=== PATIENT | female | born 1940 | race Caucasian/White ===

== ENCOUNTER 2019-07-04 16:15 | Observation (INO) | payer MEDICARE, OTHER ==
[~2019-07-04 16:15] MED LIST: LORazepam 2 MG/ML Syringe ONE
[2019-07-04] MEDS ORDERED: LORazepam 2 MG/ML Syringe IVPUSH ONE (16:21)
--- NOTE | 2019-07-04 16:36 | EDM.PDOC ---
ED HPI GENERAL MEDICAL PROBLEM - General Chief Complaint: General Stated Complaint: nausea/vomiting/dizzy Time Seen by Provider: 07/04/19 16:19 Source of Information: Reports: Patient, EMS, Family History Limitations: Reports: No Limitations - History of Present Illness INITIAL COMMENTS - FREE TEXT/NARRATIVE: Patient to the emergency department by EMS where she complained of sudden onset of severe dizziness with nausea and vomiting. The patient advises that she felt as if the room was spinning. The patient denies having symptoms such as this in the past. The patient denies any ear, nose, throat symptoms. She denies any unusual neck, back pain or stiffness she denies any chest pain pressure heaviness no palpitations or irregular heartbeat she denies any shortness of breath she denies any abdominal pain she has had nausea vomiting she denies any diarrhea she denies any rash she denies any unusual joint pain. Denies any fever chills Onset: Sudden Duration: Minutes: (Symptoms just prior to arrival) Location: Denies: Head, Neck, Chest, Abdomen, Back Quality: Denies: Ache Severity: Severe Improves with: Reports: None Worsens with: Reports: Movement Associated Symptoms: Reports: Nausea/Vomiting. Denies: Fever/Chills, Headaches Treatments RESIDENT ASSISTANT: Reports: Other (see below) (none) - Related Data Allergies Allergy/AdvReac Type Severity Reaction Status Date / Time brimonidine [From Alphagan P] Allergy Blisters Verified 07/04/19 16:29 Home Meds: Home Meds Alendronate Sodium [Fosamax] 70 mg PO WEEKLY 07/04/19 [History] Aspirin [Halfprin] 80 mg PO DAILY 07/04/19 [History] Calcium Carbonate [Calcium] 2 tab PO DAILY 07/04/19 [History] Cholecalciferol (Vitamin D3) [Vitamin D3] 5,000 units PO DAILY 07/04/19 [History ] Cyanocobalamin (Vitamin B12) [Vitamin B12] 1 tab PO Q48H 07/04/19 [History] Folic Acid 400 mcg PO DAILY 07/04/19 [History] Iron 65 mg PO BID 07/04/19 [History] Latanoprost 1 drop EYEBOTH BEDTIME 07/04/19 [History] Magnesium Oxide [Magnesium] 500 mg PO DAILY 07/04/19 [History] Meloxicam 7.5 mg PO DAILY 07/04/19 [History] Multivitamin [Multivitamins] 1 cap PO DAILY 07/04/19 [History] Norethindrone AC-Eth Estradiol [Jinteli 1 MG-5 MCG] 0.5 tab PO ACBREAKFAST 07/04 [History] Potassium Gluconate [Potassium] 99 mg PO DAILY 07/04/19 [History] Simvastatin 10 mg PO DAILY 07/04/19 [History] Past Medical History - Past Surgical History Neurological Surgical History: Reports: Laminectomy, Lumbar Spine, Spinal Fusion ED ROS GENERAL - Review of Systems Review Of Systems: See Below Constitutional: Reports: No Symptoms. Denies: Fever, Chills, Weakness HEENT: Reports: No Symptoms. Denies: Ear Pain, Eye Pain, Nose Pain, Throat Pain Respiratory: Reports: No Symptoms. Denies: Shortness of Breath Cardiovascular: Reports: No Symptoms. Denies: Chest Pain, Lightheadedness, Palpitations, Syncope Endocrine: Reports: No Symptoms GI/Abdominal: Reports: Nausea, Vomiting. Denies: Abdominal Pain : Reports: No Symptoms Musculoskeletal: Reports: No Symptoms. Denies: Neck Pain, Back Pain, Muscle Pain Skin: Reports: No Symptoms Neurological: Reports: Dizziness. Denies: Headache, Numbness, Tingling, Trouble Speaking, Weakness, Change in Speech Psychiatric: Reports: No Symptoms ED EXAM, GENERAL - Physical Exam Exam: See Below Exam Limited By: No Limitations General Appearance: Alert, WD/WN, Moderate Distress, Thin Eye Exam: Bilateral Eye: EOMI, Nystagmus, PERRL Ear Exam: Bilateral Ear: Auricle Normal, Canal Normal, TM normal Nose: Normal Inspection, Normal Mucosa Throat/Mouth: Normal Inspection, Normal Lips, Normal Oropharynx, Normal Voice, No Airway Compromise Head: Atraumatic, Normocephalic Neck: Normal Inspection, Supple, Non-Tender, Full Range of Motion Respiratory/Chest: No Respiratory Distress, Lungs Clear, Normal Breath Sounds, Chest Non-Tender Cardiovascular: Normal Peripheral Pulses, Regular Rate, Rhythm, No Murmur Peripheral Pulses: 2+: Radial (L), Radial (R) GI/Abdominal: Soft, Non-Tender Back Exam: Normal Inspection, Full Range of Motion Extremities: Normal Inspection, Normal Range of Motion, Non-Tender, Normal Capillary Refill Neurological: Alert, Oriented, CN II-XII Intact, Normal Cognition, Normal Gait, No Motor/Sensory Deficits Psychiatric: Normal Affect, Normal Mood Skin Exam: Warm, Dry, Normal Color, No Rash EKG INTERPRETATION EKG Date: 07/04/19 Time: 16:24 Rhythm: NSR [place]: Normal P-Wave: Present QRS: Normal ST-T: Normal QT: Normal EKG Interpretation Comments: Twelve-lead EKG shows an underlying sinus rhythm with a ventricular rate of 94 there is no axis deviation there is normal R wave progression there is no acute injury or ischemic pattern noted Course - Vital Signs Text/Narrative:: 1635 the patient was evaluated in the emergency department, patient's cranial nerves II through XII are intact. EOMI, normal [id number], no palmar drift. The patient advises that she felt like the room was spinning. The patient is vomiting upon arrival to the emergency department. The patient was given Zofran 4 mg IV in the ambulance. I suspect this is a benign positional vertigo, the patient was given Ativan 2 mg IV push. Currently the patient has no further vomiting she is sleepy however she advises that she is feeling much better. All the appropriate labs have been drawn from the patient and are pending as well as a CT the brain is pending to rule out any acute pathology. Disposition will be made once all the data is been collected and reviewed. 1703 the patient continues to improve she is resting quietly, CT of the brain was performed and does not show any obvious acute pathology however the radiology reading is still pending. The patient CBC and general chemistries as well as troponin and magnesium are all essentially normal. Once the CT of the brain has been read by the radiologist disposition will be made 1722 the radiologist called back and advised that the CT of the brain does not show any acute pathology. See the radiology reading for details. Again, the patient is continuing to improve she is sleeping. The patient will be observed in observation overnight, she will be placed on Antivert 25 mg 3 times daily and the plan will be for discharge tomorrow if she is feeling okay and she will have a audiology follow-up appointment. The suspected diagnosis would be benign positional vertigo Last Recorded V/S: Last Vital Signs Temp 36.8 C 07/04/19 16:53 Pulse 92 07/04/19 16:53 Resp 18 07/04/19 16:53 BP 162/81 H 07/04/19 16:53 Pulse Ox 99 07/04/19 16:53 - Orders/Labs/Meds Orders: Active Orders 24 hr Category Date Time Status Head wo Cont [CT] Stat Exams 07/04/19 16:30 Taken UA RFX ALICJA AND CULT IF INDIC [URIN] Stat Lab 07/04/19 16:29 Ordered Labs: Laboratory Tests 07/04/19 07/04/19 Range/Units 16:35 16:35 WBC 5.1 (5.0-10.0) 10^3/uL RBC 3.57 L (4.00-5.50) 10^6/uL Hgb 11.6 L (12.0-16.0) g/dL Hct 35.2 L (37.0-47.0) % MCV 98.6 H (82.0-94.0) fL MCH 32.5 H (27.0-32.0) pg MCHC 33.0 (33.0-38.0) g/dL RDW Coeff of Blayne 15.2 H (11.0-15.0) % Plt Count 147 L (150-400) 10^3/uL Neut % (Auto) 66.4 (35-85) % Lymph % (Auto) 16.2 (10-55) % [place] % (Auto) 9.1 (0-16) % Eos % (Auto) 7.5 H (0-5) % Baso % (Auto) 0.8 (0-3) % Neut # (Auto) 3.35 (1.80-7.00) 10^3/uL Lymph # (Auto) 0.82 L (1.00-4.80) 10^3/uL [place] # (Auto) 0.46 (0.00-0.80) 10^3/uL Eos # (Auto) 0.38 (0.00-0.45) 10^3/uL Baso # (Auto) 0.04 10^3/uL Sodium 141 (136-145) mEq/L Potassium 3.2 L (3.5-5.0) mEq/L Chloride 103 (98-106) mEq/L Carbon Dioxide 25 (21-32) mmol/L BUN 17 (7-18) mg/dL Creatinine 0.8 (0.6-1.0) mg/dL Est Cr Clr Drug Dosing 44.44 mL/min Estimated GFR (MDRD) > 60 (>=60) mL/min Glucose 120 H D (75-99) mg/dL Calcium 8.6 (8.4-10.1) mg/dL Magnesium 1.9 (1.8-2.4) mg/dL Total Bilirubin 0.5 (0.0-1.0) mg/dL AST 20 (15-37) U/L ALT 23 (12-78) U/L Alkaline Phosphatase 44 L (46-116) U/L Troponin I < 0.017 (0.00-0.06) ng/mL Total Protein 6.6 (6.4-8.2) g/dL Albumin 3.2 L (3.4-5.0) g/dL Meds: Medications Discontinued Medications Generic Name Dose Route Start Last Admin Trade Name Freq PRN Reason Stop Dose Admin Lorazepam Confirm 07/04/19 16:06 07/04/19 16:31 Ativan Administered 07/04/19 16:07 Not Given Dose 2 mg .ROUTE .STK-MED ONE Lorazepam 2 mg 07/04/19 16:21 07/04/19 16:21 Ativan IVPUSH 07/04/19 16:22 2 mg ONETIME ONE Administration Departure - Departure Time of Disposition: 17:23 Disposition: Refer to Observation Clinical Impression: Benign positional vertigo - Discharge Information *PRESCRIPTION DRUG MONITORING PROGRAM REVIEWED*: Not Applicable *COPY OF PRESCRIPTION DRUG MONITORING REPORT IN PATIENT HUMPHREY: Not Applicable Forms: ED Department Discharge Sepsis Event Note - Evaluation Sepsis Screening Result: No Definite Risk - Focused Exam Vital Signs: Vital Signs Temp Pulse Resp BP Pulse Ox 07/04/19 16:53 36.8 C 92 18 162/81 H 99 07/04/19 16:22 96 07/04/19 16:19 36.6 C 95 20 188/83 H 90 L Date Exam was Performed: 07/04/19 Time Exam was Performed: 17:21 - Problem List & Annotations (1) Benign positional vertigo SNOMED Code(s): 687203497 Code(s): H81.10 - BENIGN PAROXYSMAL VERTIGO, UNSPECIFIED EAR Status: Acute Priority: High Current Visit: Yes Qualifiers: Laterality: unspecified laterality Qualified Code(s): H81.10 - Benign paroxysmal vertigo, unspecified ear - Problem List Review Problem List Initiated/Reviewed/Updated: Yes - My Orders Last 24 Hours: My Active Orders 07/04/19 16:29 UA RFX ALICJA AND CULT IF INDIC [URIN] Stat 07/04/19 16:30 Head wo Cont [CT] Stat - Assessment/Plan Admission H&P: Please use this note as an admission H&P Last 24 Hours: My Active Orders 07/04/19 16:29 UA RFX ALICJA AND CULT IF INDIC [URIN] Stat 07/04/19 16:30 Head wo Cont [CT] Stat Plan: As above
[2019-07-04 16:56] LABS: CHLORIDE,CL 103 mEq/L (98-106); SODIUM,NA 141 mEq/L (136-145)
[2019-07-04] MEDS ORDERED: Ondansetron 4 MG/2 ML SDV IV PRN (17:27)
[2019-07-04] MEDS ORDERED: Sodium Chloride 0.9% 10 ML Syringe FLUSH PRN (17:27)
[2019-07-04] MEDS ORDERED: CYANOCOBALAMIN PO SCH ×2 (17:30→20:00)
[2019-07-04] MEDS ORDERED: Enoxaparin 40 MG/0.4 ML Syringe SUBCUT SCH (17:30)
[2019-07-04] MEDS ORDERED: Morphine 2 MG/ML Syringe IVPUSH ONE (19:12)
[2019-07-04] MEDS: Meclizine 12.5 MG Tab PO SCH (19:43)
[2019-07-04] MEDS: Enoxaparin 40 MG/0.4 ML Syringe SUBCUT SCH (19:44)
[2019-07-04] MEDS: Sodium Chloride 0.9% 1,000 ML IV SCH (19:46)
[2019-07-04] MEDS: IRON 65 MG PO SCH (21:03)
[2019-07-04] MEDS: LATANOPROST EYEBOTH SCH (21:06)
[2019-07-05] MEDS: Sodium Chloride 0.9% 1,000 ML IV SCH ×2 (03:34→13:46)
[2019-07-05] MEDS ORDERED: ETHINYL ESTRADIOL PO SCH (07:00)
[2019-07-05] MEDS ORDERED: NORETHINDRONE PO SCH (07:00)
[2019-07-05] MEDS ORDERED: [UNRECOGNIZED DRUG - OTHER] PO SCH (07:00)
[2019-07-05] MEDS ORDERED: Non-Formulary Medication 1 Each (Aspirin [Halfprin] 81 MG) PO SCH (08:00)
[2019-07-05] MEDS ORDERED: MELOXICAM 7.5 MG PO SCH (08:00)
[2019-07-05] MEDS ORDERED: CHOLECALCIFEROL 5000 UNIT PO SCH (08:00)
[2019-07-05] MEDS ORDERED: Non-Formulary Medication 1 Each (Simvastatin [Simvastatin] 10 MG) PO SCH (08:00)
[2019-07-05] MEDS ORDERED: Non-Formulary Medication 1 Each (Potassium Gluconate [Potassium] 99 MG) PO SCH (08:00)
[2019-07-05 09:22] LABS: CHLORIDE,CL 107 mEq/L (98-106); SODIUM,NA 143 mEq/L (136-145)
[2019-07-05] MEDS ORDERED: CYANOCOBALAMIN PO SCH (09:45)
[2019-07-05] MEDS: NORETHINDRONE AC ETH ESTRADIOL PO SCH (11:17)
[2019-07-05] MEDS: POTASSIUM GLUCONATE 99 MG PO SCH (11:18)
[2019-07-05] MEDS: CHOLECALCIFEROL 5000 UNIT PO SCH (11:19)
[2019-07-05] MEDS: FERROUS SULFATE 325 MG PO SCH ×2 (11:19→20:09)
[2019-07-05] MEDS: SIMVASTATIN 10 MG PO SCH (11:19)
[2019-07-05] MEDS: MELOXICAM 7.5 MG PO SCH (11:19)
[2019-07-05] MEDS: FOLIC ACID 400 MCG PO SCH (11:20)
[2019-07-05] MEDS: Non-Formulary Medication 1 Each (Multivitamin [Multivitamins] 1 CAP) PO SCH (11:20)
[2019-07-05] MEDS: Non-Formulary Medication 1 Each (Magnesium Oxide [Magnesium] 500 MG) PO SCH (11:20)
[2019-07-05] MEDS: CALCIUM CARBONATE PO SCH (11:20)
[2019-07-05] MEDS: Aspirin 81 MG Tab.EC**OWN MED PO SCH (11:21)
[2019-07-05] MEDS: Meclizine 12.5 MG Tab PO SCH ×3 (11:26→21:16)
[2019-07-05] MEDS: IRON 65 MG PO SCH (12:36)
--- NOTE | 2019-07-05 15:00 | PCM.PN ---
- General Info Date of Service: 07/05/19 Admission Dx/Problem (Free Text): vertigo Functional Status: Reports: Pain Controlled, Tolerating Diet, Ambulating - Review of Systems General: Reports: Weakness, Fatigue, Malaise HEENT: Denies: Visual Changes Pulmonary: Denies: Shortness of Breath, Cough Cardiovascular: Denies: Chest Pain, Edema, Lightheadedness Gastrointestinal: Reports: Nausea (admits that nausea has much improved, just mild now). Denies: Abdominal Pain, Vomiting Genitourinary: Reports: No Symptoms Musculoskeletal: Reports: No Symptoms Skin: Reports: No Symptoms Neurological: Reports: Dizziness, Weakness. Denies: Headache - Patient Data Vitals - Most Recent: Last Vital Signs Temp 98.2 F 07/05/19 12:00 Pulse 84 07/05/19 12:00 Resp 18 07/05/19 12:00 BP 140/67 07/05/19 12:00 Pulse Ox 97 07/05/19 12:00 Weight - Most Recent: 136 lb I&O - Last 24 Hours: Intake & Output 07/04/19 07/05/19 07/05/19 22:59 06:59 14:59 Intake Total 980 1000 Output Total 1400 Balance -420 1000 Lab Results Last 24 Hours: Laboratory Results - last 24 hr 07/04/19 07/04/19 07/04/19 Range/Units 16:35 16:35 20:00 WBC 5.1 (5.0-10.0) 10^3/uL RBC 3.57 L (4.00-5.50) 10^6/uL Hgb 11.6 L (12.0-16.0) g/dL Hct 35.2 L (37.0-47.0) % MCV 98.6 H (82.0-94.0) fL MCH 32.5 H (27.0-32.0) pg MCHC 33.0 (33.0-38.0) g/dL RDW Coeff of Blayne 15.2 H (11.0-15.0) % Plt Count 147 L (150-400) 10^3/uL Neut % (Auto) 66.4 (35-85) % Lymph % (Auto) 16.2 (10-55) % [place] % (Auto) 9.1 (0-16) % Eos % (Auto) 7.5 H (0-5) % Baso % (Auto) 0.8 (0-3) % Neut # (Auto) 3.35 (1.80-7.00) 10^3/uL Lymph # (Auto) 0.82 L (1.00-4.80) 10^3/uL [place] # (Auto) 0.46 (0.00-0.80) 10^3/uL Eos # (Auto) 0.38 (0.00-0.45) 10^3/uL Baso # (Auto) 0.04 10^3/uL Sodium 141 (136-145) mEq/L Potassium 3.2 L (3.5-5.0) mEq/L Chloride 103 (98-106) mEq/L Carbon Dioxide 25 (21-32) mmol/L BUN 17 (7-18) mg/dL Creatinine 0.8 (0.6-1.0) mg/dL Est Cr Clr Drug Dosing 44.44 mL/min Estimated GFR (MDRD) > 60 (>=60) mL/min Glucose 120 H D (75-99) mg/dL Calcium 8.6 (8.4-10.1) mg/dL Magnesium 1.9 (1.8-2.4) mg/dL Total Bilirubin 0.5 (0.0-1.0) mg/dL AST 20 (15-37) U/L ALT 23 (12-78) U/L Alkaline Phosphatase 44 L (46-116) U/L Troponin I < 0.017 (0.00-0.06) ng/mL C-Reactive Protein (0.2-0.8) mg/dL Total Protein 6.6 (6.4-8.2) g/dL Albumin 3.2 L (3.4-5.0) g/dL Urine Color Yellow (YELLOW) Urine Appearance Clear (CLEAR) Urine pH 7.0 (4.5-8.0) Ur Specific [place] 1.020 (1.003-1.020) Urine Protein Trace H (NEGATIVE) mg/dL Urine Glucose (UA) Negative (NEGATIVE) mg/dL Urine Ketones 15 H (NEGATIVE) mg/dL Urine Occult Blood Negative (NEGATIVE) Urine Nitrite Negative (NEGATIVE) Urine Bilirubin Negative (NEGATIVE) Urine Urobilinogen 0.2 (0.2-1.0) EU/dL Ur Leukocyte Esterase Negative (NEGATIVE) Urine RBC 0-5 (0-5) /HPF Urine WBC 0-5 (0-5) /HPF Ur Epithelial Cells Moderate H (NOT SEEN) /HPF Urine Bacteria Few H (NOT SEEN) /HPF 07/05/19 07/05/19 Range/Units 09:06 09:06 WBC 4.7 L (5.0-10.0) 10^3/uL RBC 3.67 L (4.00-5.50) 10^6/uL Hgb 11.9 L (12.0-16.0) g/dL Hct 35.9 L (37.0-47.0) % MCV 97.8 H (82.0-94.0) fL MCH 32.4 H (27.0-32.0) pg MCHC 33.1 (33.0-38.0) g/dL RDW Coeff of Blayne 15.1 H (11.0-15.0) % Plt Count 157 (150-400) 10^3/uL Neut % (Auto) 71.1 (35-85) % Lymph % (Auto) 14.8 (10-55) % [place] % (Auto) 8.0 (0-16) % Eos % (Auto) 5.7 H (0-5) % Baso % (Auto) 0.4 (0-3) % Neut # (Auto) 3.36 (1.80-7.00) 10^3/uL Lymph # (Auto) 0.70 L (1.00-4.80) 10^3/uL [place] # (Auto) 0.38 (0.00-0.80) 10^3/uL Eos # (Auto) 0.27 (0.00-0.45) 10^3/uL Baso # (Auto) 0.02 10^3/uL Sodium 143 (136-145) mEq/L Potassium 3.6 (3.5-5.0) mEq/L Chloride 107 H (98-106) mEq/L Carbon Dioxide 26 (21-32) mmol/L BUN 10 (7-18) mg/dL Creatinine 0.7 (0.6-1.0) mg/dL Est Cr Clr Drug Dosing 50.79 mL/min Estimated GFR (MDRD) > 60 (>=60) mL/min Glucose 144 H (75-99) mg/dL Calcium 8.3 L (8.4-10.1) mg/dL Magnesium (1.8-2.4) mg/dL Total Bilirubin (0.0-1.0) mg/dL AST (15-37) U/L ALT (12-78) U/L Alkaline Phosphatase (46-116) U/L Troponin I (0.00-0.06) ng/mL C-Reactive Protein 4.4 H (0.2-0.8) mg/dL Total Protein (6.4-8.2) g/dL Albumin (3.4-5.0) g/dL Urine Color (YELLOW) Urine Appearance (CLEAR) Urine pH (4.5-8.0) Ur Specific [place] (1.003-1.020) Urine Protein (NEGATIVE) mg/dL Urine Glucose (UA) (NEGATIVE) mg/dL Urine Ketones (NEGATIVE) mg/dL Urine Occult Blood (NEGATIVE) Urine Nitrite (NEGATIVE) Urine Bilirubin (NEGATIVE) Urine Urobilinogen (0.2-1.0) EU/dL Ur Leukocyte Esterase (NEGATIVE) Urine RBC (0-5) /HPF Urine WBC (0-5) /HPF Ur Epithelial Cells (NOT SEEN) /HPF Urine Bacteria (NOT SEEN) /HPF Med Orders - Current: Current Medications Aspirin (Halfprin) 81 mg PO DAILY [facility] Last Admin: 07/05/19 11:21 Dose: 81 mg Enoxaparin Sodium (Lovenox) 40 mg SUBCUT BEDTIME@2000 [facility] Last Admin: 07/04/19 19:44 Dose: 40 mg Sodium Chloride (Normal Saline) 1,000 mls @ 100 mls/hr IV ASDIRECTED [facility] Last Admin: 07/05/19 13:46 Dose: 100 mls/hr Meclizine HCl (Antivert) 25 mg PO TID [facility] Last Admin: 07/05/19 11:26 Dose: 25 mg Alendronate Sodium [ Fosamax] 70 Mg # Patient's Own Med# 70 mg PO Q7D [facility] Non-Formulary Medication (Calcium Carbonate [Calcium]) 2 tab PO DAILY [facility] Last Admin: 07/05/19 11:20 Dose: 2 tab Non-Formulary Medication (Folic Acid [Folic Acid]) 400 mcg PO DAILY [facility] Last Admin: 07/05/19 11:20 Dose: 400 mcg Non-Formulary Medication (Latanoprost [Latanoprost]) 1 drop EYEBOTH BEDTIME [facility] Last Admin: 07/04/19 21:06 Dose: 1 drop Non-Formulary Medication (Magnesium Oxide [Magnesium]) 500 mg PO DAILY [facility] Last Admin: 07/05/19 11:20 Dose: 500 mg Non-Formulary Medication (Multivitamin [Multivitamins]) 1 cap PO DAILY [facility] Last Admin: 07/05/19 11:20 Dose: 1 cap Cholecalciferol 5, (000 UnitsOwn Med) 5,000 units PO DAILY [facility] Last Admin: 07/05/19 11:19 Dose: 5,000 units Ferrous Sulfate 325 (MgOwn Med) 325 mg PO BID [facility] Last Admin: 07/05/19 11:19 Dose: 325 mg Cyanocobalamin ( Vitamin B12)Own Med 1 tab PO Q48H [facility] Last Admin: 07/05/19 11:18 Dose: 1 tab Meloxicam 7.5 Mg (Own Med) 7.5 mg PO DAILY [facility] Last Admin: 07/05/19 11:19 Dose: 7.5 mg Simvastatin 10 Mg (Own Med) 10 mg PO DAILY [facility] Last Admin: 07/05/19 11:19 Dose: 10 mg Potassium Gluconate (99 MgOwn Med) 99 mg PO DAILY [facility] Last Admin: 07/05/19 11:18 Dose: 99 mg Norethindrone Ac-Eth Estradiol [Jinteli 1 Mg-5 Mcg]Own Med 0.5 tab PO ACBREAKFAST [facility] Last Admin: 07/05/19 11:17 Dose: 0.5 tab Ondansetron HCl (Zofran) 4 mg IV Q4H PRN PRN Reason: Nausea/Vomiting Last Admin: 07/04/19 21:07 Dose: 4 mg Sodium Chloride (Saline Flush) 10 ml FLUSH ASDIRECTED PRN PRN Reason: Keep Vein Open Discontinued Medications Enoxaparin Sodium (Lovenox) 40 mg SUBCUT Q24H [facility] Last Admin: 07/04/19 18:48 Dose: Not Given Lorazepam (Ativan) Confirm Administered Dose 2 mg .ROUTE .STK-MED ONE Stop: 07/04/19 16:07 Last Admin: 07/04/19 16:31 Dose: Not Given Lorazepam (Ativan) 2 mg IVPUSH ONETIME ONE Stop: 07/04/19 16:22 Last Admin: 07/04/19 16:21 Dose: 2 mg Morphine Sulfate (Morphine) 2 mg IVPUSH ONETIME ONE Stop: 07/04/19 19:13 Last Admin: 07/04/19 19:45 Dose: Not Given Non-Formulary Medication 1 Each ( Aspirin [Halfprin] 81 Mg) 81 mg PO DAILY [facility] Last Admin: 07/05/19 12:36 Dose: Not Given Non-Formulary Medication (Cholecalciferol (Vitamin D3)) 5,000 units PO DAILY [facility] Last Admin: 07/05/19 12:36 Dose: Not Given Non-Formulary Medication (Cyanocobalamin (Vitamin B12) [Vitamin B12]) 1 tab PO Q48H [facility] Last Admin: 07/04/19 18:48 Dose: Not Given Non-Formulary Medication (Iron [Iron]) 65 mg PO BID [facility] Last Admin: 07/05/19 12:36 Dose: Not Given Non-Formulary Medication (Meloxicam [Meloxicam]) 7.5 mg PO DAILY [facility] Last Admin: 07/05/19 12:35 Dose: Not Given Non-Formulary Medication (Norethindrone Ac-Eth Estradiol [Jinteli 1 Mg-5 Mcg]) 0.5 tab PO ACBREAKFAST [facility] Last Admin: 07/05/19 12:36 Dose: Not Given Non-Formulary Medication (Potassium Gluconate [Potassium]) 99 mg PO DAILY [facility] Last Admin: 07/05/19 12:35 Dose: Not Given Non-Formulary Medication (Simvastatin [Simvastatin]) 10 mg PO DAILY [facility] Last Admin: 07/05/19 12:34 Dose: Not Given Non-Formulary Medication (Cyanocobalamin (Vitamin B12) [Vitamin B12]) 1 tab PO Q48H [facility] Last Admin: 07/04/19 21:03 Dose: Not Given - Exam General: Alert, Oriented, No Acute Distress HEENT: Mucous Membr. Moist/[place] Neck: Supple Lungs: Clear to Auscultation, Normal Respiratory Effort Cardiovascular: Regular Rate, Regular Rhythm GI/Abdominal Exam: Normal Bowel Sounds, Soft, Non-Tender Extremities: Normal Inspection, No Pedal Edema Skin: Warm, Dry Neurological: No New Focal Deficit Sepsis Event Note - Evaluation Sepsis Screening Result: No Definite Risk - Focused Exam Vital Signs: Vital Signs Temp Pulse Resp BP Pulse Ox 07/05/19 12:00 98.2 F 84 18 140/67 97 07/05/19 08:00 97.8 F 84 18 136/78 99 07/05/19 04:00 98.5 F 84 20 143/71 H 96 Date Exam was Performed: 07/05/19 Time Exam was Performed: 14:56 - Problem List & Annotations (1) Benign positional vertigo SNOMED Code(s): 588075755 Code(s): H81.10 - BENIGN PAROXYSMAL VERTIGO, UNSPECIFIED EAR Status: Acute Priority: High Current Visit: Yes Qualifiers: Laterality: unspecified laterality Qualified Code(s): H81.10 - Benign paroxysmal vertigo, unspecified ear - Problem List Review Problem List Initiated/Reviewed/Updated: Yes - My Orders Last 24 Hours: My Active Orders 07/05/19 08:41 Consult to Physical Therapy [PT Evaluation and Treatment] [CONS] Routine - Assessment Assessment:: BPV - Plan Plan:: Patient admits to feeling 60% better today. Does still feel dizzy when up but much improved. Able to move around in the bed, move head from side to side without nausea or vomiting. Did tolerate breakfast this am. CT scan of head was negative. Potassium low yesterday at 3.2. Telemetry has been normal with sinus rhythm. Blood pressure stable. Will arrange for canalith repositioning. continue Meclizine. Repeat labs today. Possible discharge home tomorrow.
[2019-07-05] MEDS: Enoxaparin 40 MG/0.4 ML Syringe SUBCUT SCH (20:08)
[2019-07-05] MEDS: LATANOPROST EYEBOTH SCH (20:10)
[2019-07-06] MEDS: Sodium Chloride 0.9% 1,000 ML IV SCH (01:11)
[2019-07-06] MEDS: NORETHINDRONE AC ETH ESTRADIOL PO SCH (06:13)
[2019-07-06] MEDS: Meclizine 12.5 MG Tab PO SCH (07:29)
[2019-07-06] MEDS: CHOLECALCIFEROL 5000 UNIT PO SCH (07:32)
[2019-07-06] MEDS: FOLIC ACID 400 MCG PO SCH (07:33)
[2019-07-06] MEDS: Non-Formulary Medication 1 Each (Magnesium Oxide [Magnesium] 500 MG) PO SCH (07:34)
[2019-07-06] MEDS: CALCIUM CARBONATE PO SCH (07:34)
[2019-07-06] MEDS: Aspirin 81 MG Tab.EC**OWN MED PO SCH (07:34)
[2019-07-06] MEDS: FERROUS SULFATE 325 MG PO SCH (07:34)
[2019-07-06] MEDS: POTASSIUM GLUCONATE 99 MG PO SCH (07:35)
[2019-07-06] MEDS: Non-Formulary Medication 1 Each (Multivitamin [Multivitamins] 1 CAP) PO SCH (07:35)
[2019-07-06] MEDS: MELOXICAM 7.5 MG PO SCH (07:35)
[2019-07-06] MEDS: SIMVASTATIN 10 MG PO SCH (07:36)
--- NOTE | 2019-07-06 09:16 | PCM.DCSUM1 ---
Discharge Summary - Hospital Course Free Text/Narrative:: in with dizziness, see notes for details Diagnosis: Stroke: No Modified [place] Scale: No Symptoms at All Modified [place] Scale Score: 0 - Discharge Data Discharge Date: 07/06/19 Discharge Disposition: Home, Self-Care 01 Condition: Fair - Referral to Home Health Primary Care Physician: Dante Alfaro MD - Discharge Diagnosis/Problem(s) (1) Benign positional vertigo SNOMED Code(s): 720076455 ICD Code: H81.10 - BENIGN PAROXYSMAL VERTIGO, UNSPECIFIED EAR Status: Acute Priority: High Current Visit: Yes Qualifiers: Laterality: unspecified laterality Qualified Code(s): H81.10 - Benign paroxysmal vertigo, unspecified ear - Patient Summary/Data Consults: Consultations 07/05/19 08:41 Consult to Physical Therapy [PT Evaluation and Treatment] [CONS] Routine - Patient Instructions Diet: Heart Healthy Diet Activity: As Tolerated Driving: Do Not Drive Showering/Bathing: May Shower - Discharge Plan *PRESCRIPTION DRUG MONITORING PROGRAM REVIEWED*: Not Applicable *COPY OF PRESCRIPTION DRUG MONITORING REPORT IN PATIENT [place]MPH[place]: Not Applicable Prescriptions/Med Rec: Meclizine [Antivert] 25 mg PO TID PRN 10 Days #30 tablet PRN Reason: Dizziness Home Medications: Home Meds Alendronate Sodium [Fosamax] 70 mg PO WEEKLY 07/04/19 [History] Aspirin [Halfprin] 81 mg PO DAILY 07/04/19 [History] Calcium Carbonate [Calcium] 2 tab PO DAILY 07/04/19 [History] Cholecalciferol (Vitamin D3) [Vitamin D3] 5,000 units PO DAILY 07/04/19 [History ] Cyanocobalamin (Vitamin B12) [Vitamin B12] 1 tab PO Q48H 07/04/19 [History] Folic Acid 400 mcg PO DAILY 07/04/19 [History] Iron 65 mg PO BID 07/04/19 [History] Latanoprost 1 drop EYEBOTH BEDTIME 07/04/19 [History] Magnesium Oxide [Magnesium] 500 mg PO DAILY 07/04/19 [History] Meloxicam 7.5 mg PO DAILY 07/04/19 [History] Multivitamin [Multivitamins] 1 cap PO DAILY 07/04/19 [History] Norethindrone AC-Eth Estradiol [Jinteli 1 MG-5 MCG] 0.5 tab PO ACBREAKFAST 07/04 [History] Potassium Gluconate [Potassium] 99 mg PO DAILY 07/04/19 [History] Simvastatin 10 mg PO DAILY 07/04/19 [History] Meclizine [Antivert] 25 mg PO TID PRN 10 Days #30 tablet 07/06/19 [Rx] Oxygen Therapy Mode: Room Air Patient Handouts: Benign Positional Vertigo Forms: ED Department Discharge Referrals: Dante Alfaro MD [Primary Care Provider] - - Discharge Summary/Plan Comment DC Time >30 min.: Yes Discharge Summary/Plan Comment: rest follow up with family doctor this week antivert 25mg 3 x a day as needed for dizziness return to the ER sooner if worse or problems - General Info Date of Service: 07/06/19 Admission Dx/Problem (Free Text: vertigo - Review of Systems General: Reports: No Symptoms. Denies: Fever, Weakness HEENT: Reports: No Symptoms Pulmonary: Reports: No Symptoms. Denies: Shortness of Breath Cardiovascular: Reports: No Symptoms. Denies: Chest Pain Gastrointestinal: Reports: No Symptoms. Denies: Abdominal Pain, Nausea, Vomiting Musculoskeletal: Reports: No Symptoms Skin: Reports: No Symptoms Neurological: Reports: No Symptoms. Denies: Dizziness, Headache Psychiatric: Reports: No Symptoms - Patient Data Vitals - Most Recent: Last Vital Signs Temp 37.3 C 07/06/19 08:00 Pulse 87 07/06/19 08:00 Resp 18 07/06/19 08:00 BP 131/60 07/06/19 08:00 Pulse Ox 98 07/06/19 08:00 Weight - Most Recent: 61.689 kg I&O - Last 24 hours: Intake & Output 07/05/19 07/06/19 07/06/19 22:59 06:59 14:59 Intake Total 1000 1450 Output Total 3050 1800 Balance -2049 - Lab Results - Last 24 hrs: Laboratory Results - last 24 hr 07/05/19 07/05/19 Range/Units 09:06 09:06 WBC 4.7 L (5.0-10.0) 10^3/uL RBC 3.67 L (4.00-5.50) 10^6/uL Hgb 11.9 L (12.0-16.0) g/dL Hct 35.9 L (37.0-47.0) % MCV 97.8 H (82.0-94.0) fL MCH 32.4 H (27.0-32.0) pg MCHC 33.1 (33.0-38.0) g/dL RDW Coeff of [place]ayne 15.1 H (11.0-15.0) % Plt Count 157 (150-400) 10^3/uL Neut % (Auto) 71.1 (35-85) % Lymph % (Auto) 14.8 (10-55) % [place] % (Auto) 8.0 (0-16) % Eos % (Auto) 5.7 H (0-5) % Baso % (Auto) 0.4 (0-3) % Neut # (Auto) 3.36 (1.80-7.00) 10^3/uL Lymph # (Auto) 0.70 L (1.00-4.80) 10^3/uL [place] # (Auto) 0.38 (0.00-0.80) 10^3/uL Eos # (Auto) 0.27 (0.00-0.45) 10^3/uL Baso # (Auto) 0.02 10^3/uL Sodium 143 (136-145) mEq/L Potassium 3.6 (3.5-5.0) mEq/L Chloride 107 H (98-106) mEq/L Carbon Dioxide 26 (21-32) mmol/L BUN 10 (7-18) mg/dL Creatinine 0.7 (0.6-1.0) mg/dL Est Cr Clr Drug Dosing 50.79 mL/min Estimated GFR (MDRD) > 60 (>=60) mL/min Glucose 144 H (75-99) mg/dL Calcium 8.3 L (8.4-10.1) mg/dL C-Reactive Protein 4.4 H (0.2-0.8) mg/dL Med Orders - Current: Current Medications Aspirin (Halfprin) 81 mg PO DAILY [facility] Last Admin: 07/06/19 07:34 Dose: 81 mg Enoxaparin Sodium (Lovenox) 40 mg SUBCUT BEDTIME@2000 [facility] Last Admin: 07/05/19 20:08 Dose: 40 mg Sodium Chloride (Normal Saline) 1,000 mls @ 100 mls/hr IV ASDIRECTED [facility] Last Admin: 07/06/19 01:11 Dose: 100 mls/hr Meclizine HCl (Antivert) 25 mg PO TID [facility] Last Admin: 07/06/19 07:29 Dose: Not Given Alendronate Sodium [ Fosamax] 70 Mg # Patient's Own Med# 70 mg PO Q7D [facility] Non-Formulary Medication (Calcium Carbonate [Calcium]) 2 tab PO DAILY [facility] Last Admin: 07/06/19 07:34 Dose: 2 tab Non-Formulary Medication (Folic Acid [Folic Acid]) 400 mcg PO DAILY [facility] Last Admin: 07/06/19 07:33 Dose: 400 mcg Non-Formulary Medication (Latanoprost [Latanoprost]) 1 drop EYEBOTH BEDTIME [facility] Last Admin: 07/05/19 20:10 Dose: 1 drop Non-Formulary Medication (Magnesium Oxide [Magnesium]) 500 mg PO DAILY [facility] Last Admin: 07/06/19 07:34 Dose: 500 mg Non-Formulary Medication (Multivitamin [Multivitamins]) 1 cap PO DAILY [facility] Last Admin: 07/06/19 07:35 Dose: 1 cap Cholecalciferol 5, (000 UnitsOwn Med) 5,000 units PO DAILY [facility] Last Admin: 07/06/19 07:32 Dose: 5,000 units Ferrous Sulfate 325 (MgOwn Med) 325 mg PO BID [facility] Last Admin: 07/06/19 07:34 Dose: 325 mg Cyanocobalamin ( Vitamin B12)Own Med 1 tab PO Q48H [facility] Last Admin: 07/05/19 11:18 Dose: 1 tab Meloxicam 7.5 Mg (Own Med) 7.5 mg PO DAILY [facility] Last Admin: 07/06/19 07:35 Dose: 7.5 mg Simvastatin 10 Mg (Own Med) 10 mg PO DAILY [facility] Last Admin: 07/06/19 07:36 Dose: 10 mg Potassium Gluconate (99 MgOwn Med) 99 mg PO DAILY [facility] Last Admin: 07/06/19 07:35 Dose: 99 mg Norethindrone Ac-Eth Estradiol [Jinteli 1 Mg-5 Mcg]Own Med 0.5 tab PO ACBREAKFAST [facility] Last Admin: 07/06/19 06:13 Dose: 0.5 tab Ondansetron HCl (Zofran) 4 mg IV Q4H PRN PRN Reason: Nausea/Vomiting Last Admin: 07/04/19 21:07 Dose: 4 mg Sodium Chloride (Saline Flush) 10 ml FLUSH ASDIRECTED PRN PRN Reason: Keep Vein Open Discontinued Medications Enoxaparin Sodium (Lovenox) 40 mg SUBCUT Q24H [facility] Last Admin: 07/04/19 18:48 Dose: Not Given Lorazepam (Ativan) Confirm Administered Dose 2 mg .ROUTE .STK-MED ONE Stop: 07/04/19 16:07 Last Admin: 07/04/19 16:31 Dose: Not Given Lorazepam (Ativan) 2 mg IVPUSH ONETIME ONE Stop: 07/04/19 16:22 Last Admin: 07/04/19 16:21 Dose: 2 mg Morphine Sulfate (Morphine) 2 mg IVPUSH ONETIME ONE Stop: 07/04/19 19:13 Last Admin: 07/04/19 19:45 Dose: Not Given Non-Formulary Medication 1 Each ( Aspirin [Halfprin] 81 Mg) 81 mg PO DAILY [facility] Last Admin: 07/05/19 12:36 Dose: Not Given Non-Formulary Medication (Cholecalciferol (Vitamin D3)) 5,000 units PO DAILY [facility] Last Admin: 07/05/19 12:36 Dose: Not Given Non-Formulary Medication (Cyanocobalamin (Vitamin B12) [Vitamin B12]) 1 tab PO Q48H [facility] Last Admin: 07/04/19 18:48 Dose: Not Given Non-Formulary Medication (Iron [Iron]) 65 mg PO BID [facility] Last Admin: 07/05/19 12:36 Dose: Not Given Non-Formulary Medication (Meloxicam [Meloxicam]) 7.5 mg PO DAILY [facility] Last Admin: 07/05/19 12:35 Dose: Not Given Non-Formulary Medication (Norethindrone Ac-Eth Estradiol [Jinteli 1 Mg-5 Mcg]) 0.5 tab PO ACBREAKFAST [facility] Last Admin: 07/05/19 12:36 Dose: Not Given Non-Formulary Medication (Potassium Gluconate [Potassium]) 99 mg PO DAILY [facility] Last Admin: 07/05/19 12:35 Dose: Not Given Non-Formulary Medication (Simvastatin [Simvastatin]) 10 mg PO DAILY [facility] Last Admin: 07/05/19 12:34 Dose: Not Given Non-Formulary Medication (Cyanocobalamin (Vitamin B12) [Vitamin B12]) 1 tab PO Q48H [facility] Last Admin: 07/04/19 21:03 Dose: Not Given - Exam Quality Assessment: Denies: Supplemental Oxygen General: Reports: Alert, Oriented, Cooperative, No Acute Distress HEENT: Reports: Pupils Equal, Pupils Reactive Neck: Reports: Supple, Trachea Midline Lungs: Reports: Clear to Auscultation, Normal Respiratory Effort Cardiovascular: Reports: Regular Rate, Regular Rhythm. Denies: Murmurs GI/Abdominal Exam: Soft, Non-Tender Back Exam: Reports: Normal Inspection, Full Range of Motion Extremities: Normal Inspection, Normal Range of Motion, Non-Tender, Normal Capillary Refill Skin: Reports: Warm, Dry, Intact Neurological: Reports: No New Focal Deficit, Normal Gait, Normal Speech, Strength Equal Bilateral Psy/Mental Status: Reports: Alert, Normal Affect, Normal Mood
[2019-07-08] MEDS ORDERED: ALENDRONATE SODIUM 70 MG PO SCH (08:00)
== END 2019-07-06 10:30 | disposition home or self-care (01) ==
LOC: CC.ED 16:15 → CC.MS 17:24 → CC.ED 17:24
PROVIDERS: ADMIT Nurse Practitioner; ATTEND Family Medicine
DX: H81.10 Benign paroxysmal vertigo, unspecified ear (principal); Z88.8 Allergy status to other drugs, medicaments and biological substances
CPT/HCPCS: 36415; 70450; 80048; 80053; 81001; 83735; 84484; 85025; 86140; 93005; 97112-GP; A9270-GY; J1650; J2060; J2405; J7030

== ENCOUNTER 2022-01-03 19:42 | Emergency (ER) | payer MEDICARE, OTHER ==
[2022-01-03] MEDS ORDERED: Lidocaine 1% 5 ML VIAL INJECT ONE (19:46)
[2022-01-03] MEDS ORDERED: Bacitracin/Neomycin/Polymyxin B Oint 28.4 GM Tube TOP ONE (20:42)
[2022-01-03] MEDS ORDERED: Bacitracin/Neomycin/Polymyxin B Oint 0.9 GM U/D Packet TOP ONE (20:50)
== END 2022-01-03 21:31 | disposition home or self-care (01) ==
LOC: CC.ED 19:42
DX: S81.811A Laceration without foreign body, right lower leg, initial encounter (principal); E78.00 Pure hypercholesterolemia, unspecified; Z88.8 Allergy status to other drugs, medicaments and biological substances; Z79.82 Long term (current) use of aspirin; Z79.01 Long term (current) use of anticoagulants; Z79.899 Other long term (current) drug therapy; W25.XXXA Contact with sharp glass, initial encounter
CPT/HCPCS: 12002; 99282; 99283

== ENCOUNTER → 2023-07-20 | Day surgery (SDC) | payer MEDICARE, OTHER ==
[~2023-07-20] MED LIST changes: -LORazepam 2 MG/ML Syringe ONE; +Lactated Ringers 1,000 ML IV SCH; +Propofol 200 MG/20 ML SDV ONE
== END ==
LOC: CC.SDS 10:38
PROVIDERS: ATTEND Surgery
DX: R39.89 Other symptoms and signs involving the genitourinary system (principal); R15.9 Full incontinence of feces; I48.0 Paroxysmal atrial fibrillation; E78.00 Pure hypercholesterolemia, unspecified; G47.33 Obstructive sleep apnea (adult) (pediatric); G56.20 Lesion of ulnar nerve, unspecified upper limb; N32.81 Overactive bladder; D22.9 Melanocytic nevi, unspecified; Z79.01 Long term (current) use of anticoagulants; Z79.899 Other long term (current) drug therapy; Z88.8 Allergy status to other drugs, medicaments and biological substances
CPT/HCPCS: 00811; 45330; 99100; J2704; J7120